=== PATIENT | female | born 1950 | race Caucasian/White ===

== ENCOUNTER 2016-08-29 15:57 | Emergency (ER) | payer MEDICARE, OTHER ==
[~2016-08-29] VITALS: Ht 157.5 cm; Wt 95.0 kg
[2016-08-29 15:59] VITALS: BP 178/84; PULSE 95; RESP 20; TEMP 97.5; O2SAT 100
[2016-08-29] MEDS ORDERED: INSU1.2I SQ (16:33)
[2016-08-29] MEDS ORDERED: LOSA100T PO (16:33)
[2016-08-29] MEDS ORDERED: PERC10TA27 PO (16:33)
[2016-08-29] MEDS ORDERED: MOBI15TA PO (16:33)
[2016-08-29] MEDS ORDERED: ROBA500T PO (17:15)
[2016-08-29] MEDS ORDERED: ORPHENADRINE INJ 60 MG/2 ML AMP IM ONE (17:15)
--- NOTE | 2016-08-29 17:16 | PD ---
HPI Chief Complaint: Back/ Neck Pain or Injury Time Seen by Provider: 17:14 Travel History International Travel<30 days: No Contact w/Intl Traveler<30days: No Traveled to known affect area: No History of Present Illness HPI 65-year-old female presents to the emergency Department with complaint of right- sided low back pain that started 2 days ago. Pain radiates down the right buttock and back of her right leg. Denies injury, heavy lifting, strain. Patient is supposed to have a right sided hip replacement in November and also has 4 herniated disks in her lower back and is supposed to have low back surgery. Has history of chronic low back pain but has not had pain like this before. Denies encopresis, incontinence, saddle anesthesias. Denies dysuria, urinary urgency, hesitancy. She urinates frequently but that is normal for her. Denies fever, chills, nausea, vomiting. Denies chest pain, shortness breath, abdominal pain. Denies paresthesias, loss of sensation, decreased range of motion, decreased strength to bilateral lower extremities. Ambulates with a cane, which is normal for her. Pain is constant and aggravated with movement of the right leg. History of hypertension and diabetes. Denies cancer. No known allergies. No other modifying factors or associated signs and symptoms. PFSH Past Medical History Diabetes: Yes Patient Takes Glucophage: No Hypertension: Yes Tetanus Vaccination: < 5 Years Past Surgical History Abdominal Surgery: Yes ([facility]) Cholecystectomy: Yes Social History Alcohol Use: No Tobacco Use: No Substance Use: No Allergies-Medications (Allergen,Severity, Reaction): Coded Allergies: No Known Allergies (Unverified , 08/29/16) Reported Meds & Prescriptions Reported Meds & Active Scripts Active Robaxin (Methocarbamol) 500 Mg Tab 500 Mg PO QID PRN Reported Topenny Solostar Pen Inj (Insulin Glargine) 300 Unit/Ml Pen 1 Units SQ Mobic (Meloxicam) 15 Mg Tab 15 Mg PO DAILY Losartan (Losartan Potassium) 100 Mg Tab 100 Mg PO DAILY Percocet (Oxycodone-Acetaminophen) 10-325 mg Tab 1 Tab PO Q6H PRN Review of Systems Except as stated in HPI: all other systems reviewed are Neg Physical Exam Narrative GENERAL: Well-nourished, well-developed female patient, in no acute distress SKIN: Warm and dry. HEAD: Atraumatic. Normocephalic. EYES: Pupils equal and round. No scleral icterus. No injection or drainage. ENT: Mucosa pink and moist. Airway patent. NECK: Trachea midline. CARDIOVASCULAR: Regular rate and rhythm. No murmur appreciated. RESPIRATORY: No accessory muscle use. Breath Sounds clear and equal bilaterally. GASTROINTESTINAL: Abdomen soft, non-tender, nondistended. Positive bowel sounds. No hepato-splenomegaly, or palpable masses. No guarding. MUSCULOSKELETAL: Bilateral lower extremities supple and non-tense with 2+ pedal pulses and sensory intact; with full range of motion and 5/5 strength. Active dorsiflexion and extension of bilateral feet. Right straight leg raise is positive for low back pain. Left straight leg raise is negative for low back pain. Ambulatory with normal gait with assistance with cane. Sitting up in bed at 90. No obvious deformities. No clubbing. No cyanosis. No edema. BACK: No midline point tenderness on palpation of the lumbar, thoracic spine. Tenderness on palpation of right paraspinal and right iliosacral area. No stepoffs. No obvious deformities. NEUROLOGICAL: Awake and alert. Oriented 3. No obvious cranial nerve deficits. Motor grossly within normal limits. Normal speech. Moves all extremities. 5/5 strength to all extremities. Sensory intact. PSYCHIATRIC: Appropriate mood and affect; insight and judgment normal. Data Data Last Documented VS Vital Signs Date Time Temp Pulse Resp B/P Pulse Ox O2 Delivery O2 Flow Rate FiO2 08/29/16 15:59 97.5 95 20 178/84 100 Room Air Orders Orphenadrine Inj (Norflex Inj) (08/29/16 17:15) Urinalysis - C+S If Indicated (08/29/16 17:18) Urine Culture (08/29/16 17:39) Labs Laboratory Tests Test 08/29/16 17:39 Urine Color YELLOW Urine Turbidity CLEAR Urine pH 5.5 Urine Specific [place] 1.024 Urine Protein TRACE mg/dL Urine Glucose (UA) NEG mg/dL Urine Ketones NEG mg/dL Urine Occult Blood NEG Urine Nitrite NEG Urine Bilirubin NEG Urine Urobilinogen LESS THAN 2.0 MG/DL Urine Leukocyte Esterase SMALL Urine RBC 1 /hpf Urine WBC 10 /hpf Urine Squamous Epithelial 7 /hpf Cells Urine Bacteria RARE /hpf Urine Mucus FEW /lpf Microscopic Urinalysis Comment CULTURE INDICATED MDM Medical Decision Making Medical Screen Exam Complete: Yes Emergency Medical Condition: Yes Medical Record Reviewed: Yes Differential Diagnosis Sciatica, lumbar radiculopathy, acute exacerbation of chronic low back pain, urinary tract infection Narrative Course 65-year-old female physical exam consistent with right-sided sciatica. Patient has history of herniated disks in her lower back and has been told she needs to have low back surgery and is scheduled for right hip surgery in November. Denies encopresis, incontinence, saddle anesthesias. Denies urinary symptoms. I will do a urinalysis to rule out urinary tract infection. Patient is ambulatory with normal gait with assistance with her cane at the bedside. No reproducible tenderness to the midline lumbar spine. No step-offs. Reproducible tenderness to the right paraspinal lumbar and iliosacral areas. Patient is diabetic and has hypertension. Norflex administered in ER. Urinalysis ordered. 1810: Urinalysis was signs of infection. I will treat the patient for sciatica also secondary to physical exam findings and history of present illness. Keflex and Robaxin prescribed for home. Patient is medically cleared and stable for discharge. Discussed reasons to return to the emergency department. Instructed patient to follow up with primary care provider. Patient agrees with treatment plan. The patients vital signs are stable and the patient is stable for outpatient follow-up and treatment. Patient discharged home, stable and in no acute distress. Diagnosis Primary Impression: Sciatica of right side Additional Impression: UTI (urinary tract infection) Qualified Code: N39.0 - Urinary tract infection without hematuria, site unspecified Referrals: Primary Care Physician Patient Instructions: General Instructions, Sciatica (ED) Additional Instructions: Tylenol as directed and as needed for pain Robaxin as prescribed and as needed for muscle spasm Heating pad and/or ice to affected area to reduce pain Avoid aggravating activities; increase activity as tolerated Follow-up with primary care provider Return to emergency department immediately with worsening of symptoms Med/Other Pt SpecificInfo: Prescription(s) given Scripts Cephalexin (Keflex)500 Mg [id number] Mg PO Q12H 7 Days Ref 0 Prov:Aurora Sr 08/29/16 Methocarbamol (Robaxin)500 Mg [id number] Mg PO QID PRN (MUSCLE SPASM) #30 TAB Ref 0 Prov:Aurora SrP 08/29/16 Disposition: 01 DISCHARGE HOME Condition: Stable Aurora Sr Aug 29, 2016 17:16
[2016-08-29 18:03] LABS: BACTERIA, URINE RARE /hpf; BLOOD, URINE NEG (NEG); COMMENT (UR) CULTURE INDICATED; CULTURE IF INDICATED CULTURE INDICATED; GLUCOSE,URINE NEG (NEG); KETONE, URINE NEG (NEG); MUCUS URINE FEW /lpf (OCC); NITRITE,URINE NEG (NEG); PH, URINE 5.5 (5.0-8.5); SQUAMOUS EPITHELIAL CELL URINE 7 /hpf (0-5); URINE COLOR YELLOW (YELLW/STRAW)
[2016-08-29] MEDS ORDERED: CEPH-460 PO (18:10)
== END 2016-08-29 19:02 | disposition home or self-care (01) ==
LOC: NEPB 15:57
DX: M54.31 Sciatica, right side (principal); N39.0 Urinary tract infection, site not specified; B96.1 Klebsiella pneumoniae [K. pneumoniae] as the cause of diseases classified elsewhere; E11.9 Type 2 diabetes mellitus without complications; I10 Essential (primary) hypertension; Z79.4 Long term (current) use of insulin
CPT/HCPCS: 81001; 87077; 87086; 87186; 96372; 99283; J2360